=== PATIENT | female | born 1935 | race African-American/Black ===

== ENCOUNTER 2021-08-18 10:25 | Inpatient (IN) ==
[2021-08-18] MEDS ORDERED: SODIUM CHLORIDE 0.9% 1,000 ML IV STA (10:52)
[2021-08-18 11:13] LABS: Basophils # 0.1 10*3/uL (0.0-0.2); Basophils % 0.5 % (0.0-0.8); Eosinophils # 0.5 10*3/uL (0.0-0.87); Eosinophils % 4.1 % (0.00-10.9); Hemoglobin 12.7 GM/DL (12.0-16.0); Immature Granulocytes % 0.6 %; Immature Granulocytes Absolute 0.08 #; Lymphocytes # 3.3 10*3/uL (1.4-4.0); Lymphocytes % 26.6 % (21.3-54.2); Mean Corpuscular HGB Conc 31.8 GM/DL (32-36); Mean Corpuscular Volume 94.1 FL (87-102); Mean Platelet Volume 9.4 FL (9.6-12.0); Monocytes % 7.3 % (1.7-12.7); Neutrophils % 60.9 % (38.7-73.9); Platelet Count 241 T/CUMM (130-400); Red Blood Count 4.25 MC/CUMM (3.8-5.5); White Blood Count 12.5 T/CUMM (4-12)
[2021-08-18 11:41] LABS: Alanine Aminotransferase 36 U/L (13-56); Albumin 3.1 G/DL (3.4-5.0); Alkaline Phosphatase 61 U/L (45-117); Aspartate Amino Transferase 12 U/L (0-37); Bilirubin,Total < 0.39 MG/DL (0.20-1.00); Blood Urea Nitrogen 28 MG/DL (7-18); Calcium 8.6 MG/DL (8.5-10.1); Carbon Dioxide 32 MMOL/L (21-32); Estimated Glom Filtration Rate 61 ML/MIN; Glucose 120 MG/DL (74-106); Osmolality,Calculated 294.7 MOS/KG (273-304); Sodium 145 MMOL/L (136-145); Thyroid Stimulating Hormone 0.874 uIU/ml (0.358-3.74); Total Protein 6.4 G/DL (6.4-8.2)
[2021-08-18 12:10] LABS: Partial Thromboplastin Time 22.2 SECS (23.8-32.1)
[2021-08-18] MEDS ORDERED: cefTRIAXone 1,000 MG in SODIUM CHLORIDE 0.9% 100 ML IV STA (12:13)
[2021-08-18] MEDS ORDERED: GLUCAGON 1 MG VIAL IM PRN (13:05)
[2021-08-18] MEDS ORDERED: DEXTROSE 10% 25 GM/250 ML BAG IV PRN (13:05)
[2021-08-18] MEDS ORDERED: ONDANSETRON 4 MG/2 ML VIAL IV PRN (13:05)
[2021-08-18 13:07] LABS: Bacteria,Urine Occasional /HPF (Few); Hyaline Casts,Urine 9 /LPF (0-3); Mucus,Urine Occasional /LPF (Occasional); RBC,Urine <1 /HPF (0-4); Squamous Epithelial Cell,Urine Occasional /HPF (0-10)
[2021-08-18 13:08] LABS: Bilirubin,Urine Negative (Negative); Blood, Urine Negative (Negative); Glucose,Urine (UA) Negative (Negative); Ketones,Urine Negative (Negative); Nitrite,Urine Negative (Negative); Protein,Urine Negative (Negative); Urine Appearance Clear (Clear); Urine Color Light Yellow (Yellow); Urine Specific Gravity 1.015 (1.001-1.035); Urine Urobilinogen < 2.0 eU/dL (<2.0)
[2021-08-18 13:22] LABS: Barbiturates Screen,Urine Negative (Negative); Benzodiazepines Screen,Urine Negative (Negative); Cannabinoid Screen,Urine Negative (Negative); Opiate Screen,Urine Positive (Negative); Phencyclidine Screen,Urine Negative (Negative)
[2021-08-18] MEDS: SODIUM CHLORIDE 0.9% 1,000 ML IV SCH ×2 (14:16→22:37)
[2021-08-18] MEDS: INSULIN REGULAR 100 UNIT/ML SUBCUT SCH ×2 (18:31→23:38)
[2021-08-18] MEDS: DOCUSATE SODIUM 100 MG CAPSULE PO SCH (21:26)
[2021-08-19] MEDS: SODIUM CHLORIDE 0.9% 1,000 ML IV SCH ×2 (06:37→18:18)
[2021-08-19] MEDS: INSULIN REGULAR 100 UNIT/ML SUBCUT SCH ×3 (06:42→18:18)
[2021-08-19] MEDS: PANTOPRAZOLE 40 MG TABLET PO SCH (08:54)
[2021-08-19] MEDS: ACETAMINOPHEN 325 MG TABLET PO PRN ×2 (08:55→21:12)
[2021-08-19] MEDS: DOCUSATE SODIUM 100 MG CAPSULE PO SCH ×2 (08:55→21:06)
[2021-08-19] MEDS: cefTRIAXone 1,000 MG in SODIUM CHLORIDE 0.9% 100 ML IV SCH (08:57)
[2021-08-19] MEDS ORDERED: PANTOPRAZOLE 40 MG TABLET PO SCH (09:00)
[2021-08-19] MEDS: AZITHROMYCIN INJ 500 MG in SODIUM CHLORIDE 0.9% 250 ML IV SCH (10:30)
[2021-08-19] MEDS: DICLOFENAC SODIUM 50 MG TABLET PO SCH (21:06)
[2021-08-19] MEDS: glipiZIDE 10 MG TABLET PO SCH ×2 (21:14→21:24)
[2021-08-20] MEDS: SODIUM CHLORIDE 0.9% 1,000 ML IV SCH ×4 (02:00→21:37)
[2021-08-20 05:36] LABS: Basophils # 0.1 10*3/uL (0.0-0.2); Basophils % 0.5 % (0.0-0.8); Eosinophils # 0.5 10*3/uL (0.0-0.87); Eosinophils % 4.1 % (0.00-10.9); Hematocrit 41.6 VOL% (35.7-47.0); Hemoglobin 13.3 GM/DL (12.0-16.0); Immature Granulocytes % 0.8 %; Immature Granulocytes Absolute 0.09 #; Lymphocytes # 3.3 10*3/uL (1.4-4.0); Lymphocytes % 29.9 % (21.3-54.2); Mean Corpuscular Volume 93.1 FL (87-102); Mean Platelet Volume 9.4 FL (9.6-12.0); Monocytes % 6.6 % (1.7-12.7); Neutrophils % 58.1 % (38.7-73.9); Platelet Count 251 T/CUMM (130-400); Red Blood Count 4.47 MC/CUMM (3.8-5.5); Red Cell Distribution Width 13.7 % (9.3-17.3); White Blood Count 10.9 T/CUMM (4-12)
[2021-08-20 06:01] LABS: Calcium 8.9 MG/DL (8.5-10.1); Osmolality,Calculated 278.4 MOS/KG (273-304); Potassium 3.5 MMOL/L (3.5-5.1)
[2021-08-20] MEDS: INSULIN REGULAR 100 UNIT/ML SUBCUT SCH ×4 (07:04→18:48)
[2021-08-20] MEDS: predniSONE 10 MG TABLET PO SCH (09:13)
[2021-08-20] MEDS: glipiZIDE 10 MG TABLET PO SCH ×2 (09:13→17:03)
[2021-08-20] MEDS: DICLOFENAC SODIUM 50 MG TABLET PO SCH ×2 (09:13→21:42)
[2021-08-20] MEDS: DOCUSATE SODIUM 100 MG CAPSULE PO SCH ×2 (09:13→21:42)
[2021-08-20] MEDS: PANTOPRAZOLE 40 MG TABLET PO SCH (09:13)
[2021-08-20] MEDS: cefTRIAXone 1,000 MG in SODIUM CHLORIDE 0.9% 100 ML IV SCH (09:14)
[2021-08-20] MEDS: AZITHROMYCIN INJ 500 MG in SODIUM CHLORIDE 0.9% 250 ML IV SCH (10:16)
[2021-08-20] MEDS: LIDOCAINE 5% PATCH TRANSDERM SCH (21:42)
[2021-08-20] MEDS: KETOROLAC 15 MG/1 ML VIAL IV SCH (23:22)
[2021-08-20] MEDS: PREGABALIN 50 MG CAPSULE PO SCH (23:30)
[2021-08-21] MEDS: INSULIN REGULAR 100 UNIT/ML SUBCUT SCH ×4 (00:11→17:45)
[2021-08-21] MEDS: KETOROLAC 15 MG/1 ML VIAL IV SCH ×4 (04:46→23:29)
[2021-08-21 05:21] LABS: Calcium 8.5 MG/DL (8.5-10.1); Osmolality,Calculated 282.1 MOS/KG (273-304); Potassium 3.3 MMOL/L (3.5-5.1)
[2021-08-21] MEDS: SODIUM CHLORIDE 0.9% 1,000 ML IV SCH ×2 (05:47→17:45)
[2021-08-21] MEDS: PANTOPRAZOLE 40 MG TABLET PO SCH (09:34)
[2021-08-21] MEDS: predniSONE 10 MG TABLET PO SCH ×2 (09:34→11:25)
[2021-08-21] MEDS: DOCUSATE SODIUM 100 MG CAPSULE PO SCH ×2 (09:34→22:11)
[2021-08-21] MEDS: glipiZIDE 10 MG TABLET PO SCH ×2 (09:34→16:14)
[2021-08-21] MEDS: PREGABALIN 50 MG CAPSULE PO SCH ×3 (09:35→20:50)
[2021-08-21] MEDS: cefTRIAXone 1,000 MG in SODIUM CHLORIDE 0.9% 100 ML IV SCH (09:38)
[2021-08-21] MEDS: LIDOCAINE 5% PATCH TRANSDERM SCH (09:39)
[2021-08-21] MEDS: AZITHROMYCIN INJ 500 MG in SODIUM CHLORIDE 0.9% 250 ML IV SCH (11:24)
[2021-08-21] MEDS: methylPREDNISolone SOD SUC 40 MG/1 ML VIAL IV SCH (20:51)
[2021-08-22] MEDS: INSULIN REGULAR 100 UNIT/ML SUBCUT SCH ×5 (00:26→23:22)
[2021-08-22] MEDS: KETOROLAC 15 MG/1 ML VIAL IV SCH ×4 (04:34→21:51)
[2021-08-22] MEDS: SODIUM CHLORIDE 0.9% 1,000 ML IV SCH (04:40)
[2021-08-22 06:00] LABS: Basophils % 0.3 % (0.0-0.8); Eosinophils % 0.3 % (0.00-10.9); Hematocrit 37.1 VOL% (35.7-47.0); Hemoglobin 11.7 GM/DL (12.0-16.0); Immature Granulocytes % 1.1 %; Lymphocytes # 1.4 10*3/uL (1.4-4.0); Lymphocytes % 15.8 % (21.3-54.2); Mean Corpuscular HGB Conc 31.5 GM/DL (32-36); Mean Corpuscular Volume 93.5 FL (87-102); Mean Platelet Volume 9.5 FL (9.6-12.0); Monocytes % 5.4 % (1.7-12.7); Neutrophils % 77.1 % (38.7-73.9); Platelet Count 246 T/CUMM (130-400); Red Blood Count 3.97 MC/CUMM (3.8-5.5); Red Cell Distribution Width 13.6 % (9.3-17.3); White Blood Count 8.9 T/CUMM (4-12)
[2021-08-22 06:21] LABS: Albumin 2.5 G/DL (3.4-5.0); Bilirubin,Total 0.4 MG/DL (0.20-1.00); Calcium 8.4 MG/DL (8.5-10.1); Osmolality,Calculated 281.3 MOS/KG (273-304); Potassium 4.2 MMOL/L (3.5-5.1); Total Protein 5.9 G/DL (6.4-8.2)
[2021-08-22] MEDS: methylPREDNISolone SOD SUC 40 MG/1 ML VIAL IV SCH ×2 (06:28→21:51)
[2021-08-22] MEDS: LIDOCAINE 5% PATCH TRANSDERM SCH (08:32)
[2021-08-22] MEDS: glipiZIDE 10 MG TABLET PO SCH ×2 (08:32→16:15)
[2021-08-22] MEDS: PREGABALIN 50 MG CAPSULE PO SCH ×2 (08:32→21:50)
[2021-08-22] MEDS: PANTOPRAZOLE 40 MG TABLET PO SCH (08:33)
[2021-08-22] MEDS: DOCUSATE SODIUM 100 MG CAPSULE PO SCH ×2 (08:33→21:50)
[2021-08-22] MEDS: cefTRIAXone 1,000 MG in SODIUM CHLORIDE 0.9% 100 ML IV SCH (08:35)
[2021-08-22] MEDS: AZITHROMYCIN INJ 500 MG in SODIUM CHLORIDE 0.9% 250 ML IV SCH (11:06)
[2021-08-23] MEDS: SODIUM CHLORIDE 0.9% 1,000 ML IV SCH ×2 (05:09→05:10)
[2021-08-23] MEDS: INSULIN REGULAR 100 UNIT/ML SUBCUT SCH (05:48)
[2021-08-23 07:37] VITALS: BP 140/61
[2021-08-23] MEDS ORDERED: AZITHROMYCIN 250 MG TABLET PO SCH (09:00)
[2021-08-23] MEDS ORDERED: predniSONE 10 MG TABLET PO SCH (09:00)
[2021-08-23] MEDS ORDERED: CEFUROXIME 250 MG TABLET PO SCH (09:00)
[2021-08-23] MEDS ORDERED: DICLOFENAC SODIUM 75 MG TABLET PO SCH (09:00)
[2021-08-23] MEDS: PANTOPRAZOLE 40 MG TABLET PO SCH (09:45)
[2021-08-23] MEDS: DOCUSATE SODIUM 100 MG CAPSULE PO SCH (09:45)
[2021-08-23] MEDS: PREGABALIN 50 MG CAPSULE PO SCH (09:46)
[2021-08-23] MEDS: glipiZIDE 10 MG TABLET PO SCH (09:46)
== END 2021-08-23 11:38 | disposition home health service (06) | DRG 194 ==
LOC: N.ED 10:25 → N.EDINP 12:58 → N.5E 22:43
PROVIDERS: ADMIT Internal Medicine; ATTEND Internal Medicine

== ENCOUNTER 2021-12-16 13:32 | Inpatient (IN) ==
[2021-12-16 14:12] LABS: Basophils % 0.5 % (0.0-0.8); Eosinophils # 0.3 10*3/uL (0.0-0.87); Eosinophils % 3.5 % (0.00-10.9); Hematocrit 43.6 VOL% (35.7-47.0); Hemoglobin 13.7 GM/DL (12.0-16.0); Immature Granulocytes % 0.5 %; Immature Granulocytes Absolute 0.04 #; Lymphocytes # 2.8 10*3/uL (1.4-4.0); Lymphocytes % 37.5 % (21.3-54.2); Mean Corpuscular HGB Conc 31.4 GM/DL (32-36); Mean Corpuscular Volume 95.4 FL (87-102); Mean Platelet Volume 10.4 FL (9.6-12.0); Monocytes # 0.7 10*3/uL (0.11-0.8); Monocytes % 8.9 % (1.7-12.7); Neutrophils % 49.1 % (38.7-73.9); Platelet Count 250 T/CUMM (130-400); Red Blood Count 4.57 MC/CUMM (3.8-5.5); Red Cell Distribution Width 12.9 % (9.3-17.3); White Blood Count 7.5 T/CUMM (4-12)
[2021-12-16 14:37] LABS: Alanine Aminotransferase 24 U/L (13-56); Albumin 3.7 G/DL (3.4-5.0); Alkaline Phosphatase 39 U/L (45-117); Aspartate Amino Transferase 13 U/L (0-37); Bilirubin,Total < 0.39 MG/DL (0.20-1.00); Blood Urea Nitrogen 24 MG/DL (7-18); Calcium 9.2 MG/DL (8.5-10.1); Carbon Dioxide 30 MMOL/L (21-32); Chloride 109 MMOL/L (98-107); Glucose 180 MG/DL (74-106); Osmolality,Calculated 287.4 MOS/KG (273-304); Potassium 4.3 MMOL/L (3.5-5.1); Sodium 140 MMOL/L (136-145)
[2021-12-16] MEDS ORDERED: GLUCAGON 1 MG VIAL IM PRN ×2 (16:13→20:59)
[2021-12-16] MEDS ORDERED: ACETAMINOPHEN 325 MG TABLET PO PRN (16:13)
[2021-12-16] MEDS ORDERED: KETOROLAC 10 MG TABLET PO PRN (16:13)
[2021-12-16] MEDS ORDERED: ONDANSETRON 4 MG/2 ML VIAL IV PRN (16:13)
[2021-12-16] MEDS ORDERED: DEXTROSE 10% 250 ML BAG IV PRN ×2 (16:20→21:10)
[2021-12-16] MEDS: fentaNYL 25 MCG/HR PATCH TRANSDERM SCH (19:15)
[2021-12-16] MEDS: DOCUSATE SODIUM 100 MG CAPSULE PO SCH (20:38)
[2021-12-16] MEDS: ALFUZOSIN 10 MG TABLET PO SCH (20:38)
[2021-12-16] MEDS: AMITRIPTYLINE 50 MG TABLET PO SCH (20:39)
[2021-12-16] MEDS ORDERED: MEMANTINE 10 MG TABLET PO SCH (21:00)
[2021-12-16] MEDS ORDERED: METHOCARBAMOL 500 MG TABLET PO SCH (21:00)
[2021-12-16] MEDS ORDERED: MIRTAZAPINE 15 MG TABLET PO SCH (21:00)
[2021-12-16] MEDS ORDERED: ALBUTEROL/IPRATROPIUM 3 ML NEB RESP TX PRN (21:14)
[2021-12-16] MEDS: KETOROLAC 10 MG TABLET PO SCH (22:15)
[2021-12-16] MEDS: methylPREDNISolone SOD SUC 40 MG/1 ML VIAL IV SCH (22:36)
[2021-12-16] MEDS: cefTRIAXone 1,000 MG in SODIUM CHLORIDE 0.9% 100 ML IV SCH (22:36)
[2021-12-16] MEDS: INSULIN REGULAR 100 UNIT/ML SUBCUT SCH (23:20)
[2021-12-17] MEDS: KETOROLAC 10 MG TABLET PO SCH ×2 (04:47→10:49)
[2021-12-17] MEDS: methylPREDNISolone SOD SUC 40 MG/1 ML VIAL IV SCH ×3 (04:57→21:18)
[2021-12-17 05:23] LABS: Basophils % 0.7 % (0.0-0.8); Eosinophils % 0.7 % (0.00-10.9); Hematocrit 42.8 VOL% (35.7-47.0); Hemoglobin 13.4 GM/DL (12.0-16.0); Immature Granulocytes % 0.3 %; Immature Granulocytes Absolute 0.02 #; Lymphocytes # 1.7 10*3/uL (1.4-4.0); Lymphocytes % 28.5 % (21.3-54.2); Mean Corpuscular HGB Conc 31.3 GM/DL (32-36); Mean Corpuscular Volume 94.7 FL (87-102); Mean Platelet Volume 10.5 FL (9.6-12.0); Monocytes # 0.3 10*3/uL (0.11-0.8); Monocytes % 4.8 % (1.7-12.7); Platelet Count 244 T/CUMM (130-400); Red Blood Count 4.52 MC/CUMM (3.8-5.5); Red Cell Distribution Width 12.7 % (9.3-17.3); White Blood Count 6.1 T/CUMM (4-12)
[2021-12-17 05:46] LABS: Alanine Aminotransferase 24 U/L (13-56); Albumin 3.2 G/DL (3.4-5.0); Alkaline Phosphatase 40 U/L (45-117); Aspartate Amino Transferase 11 U/L (0-37); Bilirubin,Total < 0.39 MG/DL (0.20-1.00); Blood Urea Nitrogen 20 MG/DL (7-18); Calcium 8.8 MG/DL (8.5-10.1); Carbon Dioxide 24 MMOL/L (21-32); Chloride 108 MMOL/L (98-107); Glucose 218 MG/DL (74-106); Osmolality,Calculated 286.5 MOS/KG (273-304); Potassium 4.8 MMOL/L (3.5-5.1); Sodium 139 MMOL/L (136-145); Total Protein 7.1 G/DL (6.4-8.2)
[2021-12-17] MEDS: INSULIN REGULAR 100 UNIT/ML SUBCUT SCH ×4 (10:41→21:18)
[2021-12-17] MEDS: LIDOCAINE 5% PATCH TRANSDERM SCH (10:44)
[2021-12-17] MEDS: MAGNESIUM HYDROXIDE SUSP 30 ML UDCUP PO SCH (10:46)
[2021-12-17] MEDS: PANTOPRAZOLE 40 MG TABLET PO SCH (10:46)
[2021-12-17] MEDS: DOCUSATE SODIUM 100 MG CAPSULE PO SCH ×2 (10:46→21:17)
[2021-12-17] MEDS: FERROUS SULFATE 325 MG TABLET PO SCH (10:47)
[2021-12-17] MEDS: PREGABALIN 100 MG CAPSULE PO SCH (10:48)
[2021-12-17] MEDS: METHOCARBAMOL 500 MG TABLET PO SCH ×3 (10:48→21:17)
[2021-12-17] MEDS: KETOROLAC 15 MG/1 ML VIAL IV SCH ×2 (16:59→22:23)
[2021-12-17] MEDS: ALFUZOSIN 10 MG TABLET PO SCH (21:17)
[2021-12-17] MEDS: MEMANTINE 10 MG TABLET PO SCH ×2 (21:17→21:50)
[2021-12-17] MEDS: cefTRIAXone 1,000 MG in SODIUM CHLORIDE 0.9% 100 ML IV SCH (21:48)
[2021-12-17] MEDS: AMITRIPTYLINE 50 MG TABLET PO SCH (21:50)
[2021-12-18] MEDS: methylPREDNISolone SOD SUC 40 MG/1 ML VIAL IV SCH ×3 (05:03→21:17)
[2021-12-18] MEDS: KETOROLAC 15 MG/1 ML VIAL IV SCH ×4 (05:05→23:51)
[2021-12-18] MEDS: MAGNESIUM HYDROXIDE SUSP 30 ML UDCUP PO SCH (09:45)
[2021-12-18] MEDS: PREGABALIN 100 MG CAPSULE PO SCH (09:47)
[2021-12-18] MEDS: FERROUS SULFATE 325 MG TABLET PO SCH (09:48)
[2021-12-18] MEDS: PANTOPRAZOLE 40 MG TABLET PO SCH (09:48)
[2021-12-18] MEDS: DOCUSATE SODIUM 100 MG CAPSULE PO SCH ×2 (09:48→21:13)
[2021-12-18] MEDS: LIDOCAINE 5% PATCH TRANSDERM SCH (09:49)
[2021-12-18] MEDS: INSULIN REGULAR 100 UNIT/ML SUBCUT SCH ×4 (09:50→22:05)
[2021-12-18] MEDS: METHOCARBAMOL 500 MG TABLET PO SCH ×3 (09:52→21:13)
[2021-12-18] MEDS: MEMANTINE 10 MG TABLET PO SCH (21:13)
[2021-12-18] MEDS: AMITRIPTYLINE 50 MG TABLET PO SCH (21:14)
[2021-12-18] MEDS: ALFUZOSIN 10 MG TABLET PO SCH (21:14)
[2021-12-18] MEDS: cefTRIAXone 1,000 MG in SODIUM CHLORIDE 0.9% 100 ML IV SCH (21:20)
[2021-12-19] MEDS: KETOROLAC 15 MG/1 ML VIAL IV SCH ×4 (05:09→23:20)
[2021-12-19] MEDS: methylPREDNISolone SOD SUC 40 MG/1 ML VIAL IV SCH ×3 (05:12→21:48)
[2021-12-19 06:47] LABS: Basophils % 0.3 % (0.0-0.8); Eosinophils % 0.5 % (0.00-10.9); Hematocrit 40.5 VOL% (35.7-47.0); Hemoglobin 12.7 GM/DL (12.0-16.0); Immature Granulocytes % 0.8 %; Immature Granulocytes Absolute 0.06 #; Lymphocytes # 1.8 10*3/uL (1.4-4.0); Lymphocytes % 23.9 % (21.3-54.2); Mean Corpuscular HGB Conc 31.4 GM/DL (32-36); Mean Corpuscular Volume 94.2 FL (87-102); Mean Platelet Volume 10.3 FL (9.6-12.0); Monocytes # 0.4 10*3/uL (0.11-0.8); Monocytes % 4.6 % (1.7-12.7); Neutrophils % 69.9 % (38.7-73.9); Platelet Count 255 T/CUMM (130-400); Red Cell Distribution Width 12.5 % (9.3-17.3); White Blood Count 7.6 T/CUMM (4-12)
[2021-12-19 07:07] LABS: Calcium 8.9 MG/DL (8.5-10.1); Osmolality,Calculated 289.4 MOS/KG (273-304); Potassium 5.1 MMOL/L (3.5-5.1)
[2021-12-19] MEDS: LIDOCAINE 5% PATCH TRANSDERM SCH (09:13)
[2021-12-19] MEDS: INSULIN REGULAR 100 UNIT/ML SUBCUT SCH ×4 (10:28→21:50)
[2021-12-19] MEDS: DOCUSATE SODIUM 100 MG CAPSULE PO SCH ×2 (11:10→21:50)
[2021-12-19] MEDS: PANTOPRAZOLE 40 MG TABLET PO SCH (11:10)
[2021-12-19] MEDS: METHOCARBAMOL 500 MG TABLET PO SCH ×3 (11:10→21:50)
[2021-12-19] MEDS: FERROUS SULFATE 325 MG TABLET PO SCH (11:10)
[2021-12-19] MEDS: MAGNESIUM HYDROXIDE SUSP 30 ML UDCUP PO SCH (11:11)
[2021-12-19] MEDS: fentaNYL 25 MCG/HR PATCH TRANSDERM SCH (17:04)
[2021-12-19] MEDS ORDERED: PREGABALIN 100 MG CAPSULE PO SCH (19:00)
[2021-12-19] MEDS ORDERED: AMITRIPTYLINE 10 MG TABLET PO SCH (21:00)
[2021-12-19] MEDS: cefTRIAXone 1,000 MG in SODIUM CHLORIDE 0.9% 100 ML IV SCH (21:48)
[2021-12-19] MEDS: ALFUZOSIN 10 MG TABLET PO SCH (21:49)
[2021-12-19] MEDS: MEMANTINE 10 MG TABLET PO SCH (21:49)
[2021-12-20] MEDS: methylPREDNISolone SOD SUC 40 MG/1 ML VIAL IV SCH ×2 (05:26→14:02)
[2021-12-20] MEDS: KETOROLAC 15 MG/1 ML VIAL IV SCH ×2 (05:27→11:45)
[2021-12-20] MEDS: INSULIN REGULAR 100 UNIT/ML SUBCUT SCH ×2 (09:16→11:26)
[2021-12-20] MEDS: MAGNESIUM HYDROXIDE SUSP 30 ML UDCUP PO SCH (09:17)
[2021-12-20] MEDS: LIDOCAINE 5% PATCH TRANSDERM SCH (09:17)
[2021-12-20] MEDS: FERROUS SULFATE 325 MG TABLET PO SCH (09:18)
[2021-12-20] MEDS: PANTOPRAZOLE 40 MG TABLET PO SCH (09:18)
[2021-12-20] MEDS: METHOCARBAMOL 500 MG TABLET PO SCH (09:18)
[2021-12-20] MEDS: DOCUSATE SODIUM 100 MG CAPSULE PO SCH (09:18)
[2021-12-20 11:53] VITALS: BP 139/81
== END 2021-12-20 14:53 | disposition home health service (06) | DRG 552 ==
LOC: N.ED 13:32 → N.EDINP 13:32 → N.TELES 17:34
PROVIDERS: ADMIT Internal Medicine; ATTEND Internal Medicine